=== PATIENT | female | born 1995 | race Caucasian/White ===

== ENCOUNTER 2019-04-01 17:54 | Emergency (ER) | payer MEDICAID, OTHER ==
[2019-04-01 17:59] VITALS: BP 143/75
--- OUTSIDE RECORDS SUMMARY | 2019-04-01 18:06 | XMS REPORT ---
:[address] [facility] Address [address] [place] [address] Care Team Providers Name Role Phone Missy Mcdonnell Unavailable Unavailable PROBLEMS Type Condition ICD9-CM [id number] Onset Condition SNOMED Code Code Code Dates Status Problem Anxiety F41.9 Active 72450903 Problem Mild intermittent J45.21 Active 992114257 asthma with acute exacerbation Problem Panic disorder F41.0 Active 510878576 [episodic paroxysmal anxiety] Problem Acute stress F43.0 Active 46664873 reaction Problem Primary insomnia F51.01 Active 5025779 Problem Gastroesophageal K21.0 Active 048092454 reflux disease with esophagitis Problem Slow transit K59.01 Active 23051792 constipation Problem Allergic rhinitis, J30.9 Active 18626959 unspecified seasonality, unspecified trigger ALLERGIES No Information ENCOUNTERS Encounter Location Date Diagnosis [address] Jan, [place] [address] Dec, Primary insomnia F51.01 ; [place], [place] Anxiety F41.9 ; Acute stress [address] reaction F43.0 and Panic disorder [episodic paroxysmal anxiety] F41.[address] Nov, [place] [address] Oct, Anxiety F41.9 and Allergic [place] rhinitis, unspecified [address] seasonality, unspecified trigger J30.[address] Sep, [place] [address] Apr, [place] [address] Mar, [place] [address] Feb, [address] Dec, [place] [address] [place] [address] Oct, Bronchitis J40 and Anterior [place] pleuritic pain R07.[address] [place] [address] Sep, Mild intermittent asthma [place] with acute exacerbation [address] J45.21 ; Anxiety F41.9 ; Primary insomnia F51.01 ; Gastroesophageal reflux disease with esophagitis K21.0 ; RUQ pain R10.11 and Elevated AST (SGOT) R74.[address] Aug, Mild intermittent asthma [place] with acute exacerbation [address] J45.21 ; Anxiety F41.9 ; Primary insomnia F51.01 and Near syncope R55 [address] May, [place] [address] [place], Anxiety F41.9 [place] [address] [facility] [address] [place], [place] [address] Apr, [place] [address] [place] [address] Apr, [place] [address] [place] [address] Apr, [place] [address] [place] [address] Feb, Anxiety F41.9 [place] [address] [place] [address] Jan, [place] [address] [place] [address] Jan, Mild intermittent asthma [place] with acute exacerbation [address] J45.21 ; Anxiety F41.9 ; Screening for thyroid disorder Z13.29 ; Encounter for vitamin deficiency screening Z13.21 and Encounter for immunization Z23 IMMUNIZATIONS No Known Immunizations SOCIAL HISTORY Never Assessed REASON FOR REFERRAL FUNCTIONAL STATUS PLAN OF CARE VITAL SIGNS MEDICATIONS Unknown Medications PROCEDURES No Known procedures RESULTS No Results REASON FOR VISIT no show Insurance Providers [facility] Member Patient Patient Patient Patient Patient Subscriber Subscriber Subscriber Group Insurance Plan Plan Plan Plan ID Relationship Address Phone Name Date of ID Name Date of No Type Insurance Insurance Insurance Coverage to Subscriber Address Phone Name Dates [place] [phone] Yvan self Lisa [id number] [place] [address] [place] [address] Medical Blue [phone] Blue self Lisa [id number] Choice Opt [address] Choice Opt Mix [id number] [place] [id number] [place] [facility] [place] [facility] [address] Medicaid [phone] Medicaid self Lisa [id number] [facility] [address]rap [place] [id number] Yvan [phone] [place] self Lisa [id number] Medicaid [id number] Medicaid [place] [id number] [employer] Blue [phone] Blue self Lisa [id number] Choice Opt [id number] Choice Opt Mix 2 Medical [place] Medical [address] MEDICAL (GENERAL) HISTORY Type Description Date Medical History anxiety Medical History asthma Medical History allergies Medical History [place] 04/2018 Surgical History intestinal hemmorage due to impacted stools 03/2014 Hospitalization History above 03/2014
[2019-04-01] MEDS ORDERED: Albuterol/Ipratropium NEB.SOL* Albuterol 2.5 MG/Ipratropium 0.5 MG 3 ML INH ONE (18:25)
--- NOTE | 2019-04-01 18:31 | ED ---
Asthma - HPI Summary HPI Summary: 24-year-old female presents with shortness of breath for the past week. She's been sick last week with a cold that has been improving. She states that her cold has pretty much resolved but she is still having issues with her asthma. She has been having occasional dry cough. She has been wheezing. She has been taking her inhaler 6 times a day. She is nonsmoker. She denies any fevers. Denies any chest pain. She admits to occasional sore throat. Her nieces were sick. Has history of anxiety depression asthma. - History of Current Complaint Chief Complaint: EDAsthma Stated Complaint: ASTHMA PROBLEM PER PT Time Seen by Provider: 04/01/19 18:15 Pain Intensity: 4 - Allergy/Home Medications Allergies/Adverse Reactions: Allergies Allergy/AdvReac Type Severity Reaction Status Date / Time No Known Allergies Allergy Verified 04/01/19 17:59 PMH/Surg Hx/FS Hx/Imm Hx Endocrine/Hematology History: Denies: Hx Anticoagulant Therapy Respiratory History: Reports: Hx Asthma Infectious Disease History: No Infectious Disease History: Denies: Traveled Outside the [place] in Last 30 Days - Family History Known Family History: Positive: Non-Contributory - Social History Substance Use Type: Reports: None Smoking Status (MU): Never Smoked Tobacco Review of Systems Negative: Fever Negative: Chest Pain Positive: Shortness Of Breath, Cough All Other Systems Reviewed And Are Negative: Yes Physical Exam Triage Information Reviewed: Yes Vital Signs On Initial Exam: Initial Vitals Temp Pulse Resp BP Pulse Ox 99.1 F 88 18 143/75 98 04/01/19 17:55 04/01/19 17:55 04/01/19 17:55 04/01/19 17:55 04/01/19 17:55 Vital Signs Reviewed: Yes Appearance: Positive: Well-Appearing Skin: Positive: Warm, Dry Head/Face: Positive: Normal Head/Face Inspection Eyes: Positive: Normal, EOMI, CHELSEA, Conjunctiva Clear ENT: Positive: Pharynx normal, TMs normal Respiratory/Lung Sounds: Positive: Clear to Auscultation, Breath Sounds Present Cardiovascular: Positive: Normal, RRR Abdomen Description: Positive: Nontender, Soft Bowel Sounds: Positive: Present Musculoskeletal: Positive: Normal Neurological: Positive: Normal Psychiatric: Positive: Normal Procedures - Sedation Patient Received Moderate/Deep Sedation with Procedure: No Diagnostics - Vital Signs Vital Signs Temp Pulse Resp BP Pulse Ox 04/01/19 17:55 99.1 F 88 18 143/75 98 - Laboratory Lab Statement: Any lab studies that have been ordered have been reviewed, and results considered in the medical decision making process. Asthma Course/Dx - Course Course Of Treatment: 24-year-old female presents with shortness of breath for the past week. She's been sick last week with a cold that has been improving. She states that her cold has pretty much resolved but she is still having issues with her asthma. She has been having occasional dry cough. She has been wheezing. She has been taking her inhaler 6 times a day. She is nonsmoker. She denies any fevers. Denies any chest pain. She admits to occasional sore throat. Her nieces were sick. Has history of anxiety depression asthma. On exam a slight wheezes noted. Pharynx normal. Lungs otherwise clear to auscultation. gave breathing treatment. will place on short course of steroid. Told to follow up primary. Told to continue using inhaler. Patient understands and agrees the plan. - Diagnoses Differential Diagnosis/HQI/PQRI: Positive: Acute Asthma, Bronchitis, COPD Excerbation Provider Diagnoses: Asthma Discharge ED - Sign-Out/Discharge Documenting (check all that apply): Patient Departure - Discharge Plan Condition: Good Disposition: HOME Prescriptions: predniSONE 50 mg TAB [Deltasone 50 mg TAB] 50 mg PO DAILY #4 tab Patient Education Materials: Asthma (ED) Referrals: Missy Mcdonnell I EMS MANAGER [Primary Care Provider] - Additional Instructions: Use inhaler up to two puffs every 4 hours for cough and wheezing Take steroid once a day for 4 more days starting tomorrow Take Tylenol or ibuprofen for pain every 6 hours Follow up with primary within 5 days Return to ED if develop any new or worsening symptoms - Billing Disposition and Condition Condition: GOOD Disposition: Home
== END 2019-04-01 19:14 | disposition home or self-care (01) ==
LOC: ED 17:54
DX: J45.909 Unspecified asthma, uncomplicated (principal)
CPT/HCPCS: 99282; A9270-GY; J7512